=== PATIENT | female | born 1980 | race Caucasian/White ===

== ENCOUNTER 2016-11-07 06:17 | Day surgery (SDC) | payer MEDICAID ==
[2016-11-05 12:30] LABS: HEMATOCRIT 44.9 % (36.0-47.0); HEMOGLOBIN 15.5 g/dL (12.0-15.5); HGB HCT DIFFERENCE 1.6; MEAN CORPUSCULAR HEMOGLOBIN 30.4 pg (27.0-33.4); MEAN CORPUSCULAR HGB CONC 34.4 g/dL (32.0-36.0); MEAN CORPUSCULAR VOLUME 88 fl (80-97); RED BLOOD COUNT 5.08 10^6/uL (3.72-5.28); WHITE BLOOD COUNT 10.5 10^3/uL (4.0-10.5)
[~2016-11-07 06:17] MED LIST: LACTATED RINGERS 1000 ML IV PRN; LIDOCAINE 0.5% INJ-PF (5 MG/ML) 50 ML SDV SUBCUT PRN
[2016-11-07] MEDS ORDERED: MIDAZOLAM 2 MG/2 ML INJ ONE (08:34)
[2016-11-07] MEDS ORDERED: PROPOFOL INJ 200 MG/20 ML VIAL IV ONE (08:35)
[2016-11-07] MEDS ORDERED: PROMETHAZINE HCL INJ 25 MG/1 ML VIAL IV PRN ×2 (08:56)
[2016-11-07] MEDS ORDERED: FENTANYL CITRATE INJ/PF 100 MCG/2 ML AMPUL IV PRN ×3 (08:56)
[2016-11-07] MEDS ORDERED: MORPHINE SULFATE 10 MG/ML INJ IV PRN (08:56)
[2016-11-07] MEDS ORDERED: OXYCODONE-ACETAMINOPHEN 5-325 MG TABLET PO PRN ×2 (08:56)
[2016-11-07] MEDS ORDERED: DIPHENHYDRAMINE HCL 50 MG/ML VIAL IV PRN (08:56)
--- NOTE | 2016-11-07 08:59 | Operative Report ---
Operative Report DATE OF SURGERY: 11/07/16 Operative Report: The risks benefits and alternatives of the procedure explained to the patient in detail and informed consent is obtained that GIF Olympus video scope was inserted into the patient's mouth and hypopharynx the esophagus is identified intubated and insufflated the scope was then advanced through the esophagus stomach and duodenum retroflexion maneuver is done the esophagus stomach and first and second portions of the duodenum examined PREOPERATIVE DIAGNOSIS: Dyspepsia, GERD, nausea vomiting POSTOPERATIVE DIAGNOSIS: Gastritis status post biopsy rule out Helicobacter pylori OPERATION: EGD with biopsy SURGEON: MICKY ORTA ANESTHESIA: LMAC TISSUE REMOVED OR ALTERED: Gastric specimen 2 COMPLICATIONS: None. ESTIMATED BLOOD LOSS: none. INTRAOPERATIVE FINDINGS: Normal patent esophagus. Gastritis. Duodenitis PROCEDURE: Patient tolerated the procedure well. No immediate postprocedure complications are noted. Patient is discharged in good condition. Discharge date 11/07/2016. Discharge diet: Regular. Discharge activity: Regular. Patient does have a 2-3 week follow-up to discuss findings. Patient is instructed to call the office or proceed to the emergency room should there be any further problems or questions. We'll await on biopsies.
[2016-11-07] MEDS ORDERED: DEXTROSE 5%-1/2 NORMAL SALINE 1,000 ML IV PRN (09:29)
[2016-11-07] MEDS ORDERED: PROMETHAZINE HCL INJ 25 MG/1 ML VIAL INJ PRN (10:15)
[2016-11-07] MEDS ORDERED: SIMETHICONE 80 MG TAB.CHEW PO PRN (10:15)
[2016-11-07] MEDS ORDERED: ACETAMINOPHEN 325 MG TABLET PO PRN (10:15)
[2016-11-07 11:26] VITALS: BP 107/64
[2016-11-07] MEDS ORDERED: LIDOCAINE 2% INJ-PF (20 MG/ML) 10 ML AMPUL ONE (12:38)
[2016-11-07] MEDS ORDERED: DEXAMETHASONE SOD PHOSPHATE INJ 4 MG/1 ML VIAL ONE (12:38)
== END 2016-11-07 11:00 | disposition home or self-care (01) ==
LOC: OROUT 06:17
PROVIDERS: ATTEND Internal Medicine Gastroenterology
PROC: 0DB68ZX Excision of Stomach, Via Natural or Artificial Opening Endoscopic, Diagnostic (ICD-10-PCS; principal; 2016-11-07 08:30)
DX: K21.9 Gastro-esophageal reflux disease without esophagitis (principal); K44.9 Diaphragmatic hernia without obstruction or gangrene; K29.50 Unspecified chronic gastritis without bleeding; K29.80 Duodenitis without bleeding; M19.90 Unspecified osteoarthritis, unspecified site; J45.20 Mild intermittent asthma, uncomplicated; F17.210 Nicotine dependence, cigarettes, uncomplicated; Z79.51 Long term (current) use of inhaled steroids; Z79.899 Other long term (current) drug therapy
CPT/HCPCS: 43239; 36415; 85027; 81025; 88342 ×2; 88305 ×2; J2250; J1100; J2704; J3490; 740

== ENCOUNTER 2016-11-18 10:16 | Day surgery (SDC) | payer MEDICAID ==
[2016-11-12 12:03] LABS: APPEARANCE,URINE CLEAR; BILIRUBIN,URINE NEGATIVE (NEGATIVE); GLUCOSE, URINE NEGATIVE (NEGATIVE); KETONES,URINE NEGATIVE (NEGATIVE); LEUKOCYTE ESTERASE,URINE NEGATIVE (NEGATIVE); NITRITE,URINE NEGATIVE (NEGATIVE); PROTEIN,URINE NEGATIVE (NEGATIVE); URINE SPECIFIC GRAVITY 1.012; UROBILINOGEN,URINE NEGATIVE mg/dL (<2.0)
[2016-11-12 12:35] LABS: ANION GAP 9 (5-19); BLOOD UREA NITROGEN 9 mg/dL (7-20); CALCIUM 9.7 mg/dL (8.4-10.2); CARBON DIOXIDE 25 mmol/L (22-30); CHLORIDE 106 mmol/L (98-107); CREATININE RESULT 0.71 mg/dL (0.52-1.25); GLUCOSE 80 mg/dL (75-110); POTASSIUM 4.2 mmol/L (3.6-5.0); SODIUM 140.2 mmol/L (137-145)
[~2016-11-18 10:16] MED LIST changes: +BUPIVACAINE HCL 0.5 % INJ/PF 30 ML SDV ONE; +CLINDAMYCIN 600 MG/D5W RTU 600 MG/50 ML RTUPB IV PRN; +DEXAMETHASONE SOD PHOSPHATE INJ 4 MG/1 ML VIAL ONE; +GLYCOPYRROLATE INJ 0.4 MG/2 ML VIAL ONE; -LACTATED RINGERS 1000 ML IV PRN; +LIDOCAINE 0.5% INJ-PF (5 MG/ML) 50 ML SDV INJ PRN; -LIDOCAINE 0.5% INJ-PF (5 MG/ML) 50 ML SDV SUBCUT PRN; +LIDOCAINE 2% INJ-PF (20 MG/ML) 10 ML AMPUL ONE; +METOCLOPRAMIDE HCL INJ/PF 10 MG/2 ML SDV ONE; +NEOSTIGMINE METHYLSULFATE 10 MG/10 ML VIAL ONE; +ONDANSETRON HCL INJ/PF 4 MG/2 ML SDV ONE; +RINGERS SOLUTION,LACTATED 1,000 ML IV PRN; +ROCURONIUM BROMIDE INJ 50 MG/5 ML VIAL IV ONE; +SUCCINYLCHOLINE CHLORIDE INJ 200 MG/10 ML VIAL ONE
[2016-11-18] MEDS ORDERED: ALBUTEROL SULFATE 0.083% NEB 2.5 MG/3 ML AMPUL NEB ONE (12:39)
[2016-11-18] MEDS ORDERED: FENTANYL CITRATE INJ/PF 250 MCG/5 ML AMPULE ONE (12:51)
[2016-11-18] MEDS ORDERED: ACETAMINOPHEN 100 ML IV ONE (12:52)
[2016-11-18] MEDS ORDERED: MIDAZOLAM 2 MG/2 ML INJ ONE (12:52)
[2016-11-18] MEDS ORDERED: MORPHINE SULFATE 10 MG/ML INJ ONE (12:52)
[2016-11-18] MEDS ORDERED: PROPOFOL INJ 200 MG/20 ML VIAL IV ONE (12:52)
[2016-11-18] MEDS ORDERED: DIPHENHYDRAMINE HCL 50 MG/ML VIAL IV PRN (13:56)
[2016-11-18] MEDS ORDERED: MEPERIDINE HCL/PF INJ 25 MG/1 ML DISP.SYRIN IV PRN (13:56)
[2016-11-18] MEDS ORDERED: MORPHINE SULFATE 10 MG/ML INJ IV PRN (13:56)
[2016-11-18] MEDS ORDERED: PROMETHAZINE HCL INJ 25 MG/1 ML VIAL IV PRN ×2 (13:56)
[2016-11-18] MEDS ORDERED: FENTANYL CITRATE INJ/PF 100 MCG/2 ML AMPUL IV PRN ×3 (13:56)
[2016-11-18] MEDS ORDERED: OXYCODONE-ACETAMINOPHEN 5-325 MG TABLET PO PRN ×3 (13:56→14:56)
[2016-11-18] MEDS ORDERED: HYDROMORPHONE HCL INJ/PF 2 MG/ML AMPULE IV PRN (14:56)
--- NOTE | 2016-11-18 15:05 | Operative Report ---
Operative Report DATE OF SURGERY: 11/18/16 PREOPERATIVE DIAGNOSIS: Right Thumb RCL Tear POSTOPERATIVE DIAGNOSIS: Same OPERATION: Right Thumb RCL Repair SURGEON: FAUSTINO MARINELLI ANESTHESIA: GA COMPLICATIONS: None ESTIMATED BLOOD LOSS: Minimal PROCEDURE: Indication for above procedure: 36-year-old female who sustained injury to her right thumb back in August. She was diagnosed with a radial collateral ligament injury which was treated conservatively with a cast. Patient continued to have discomfort she was then sent to ms for further evaluation. Radiographs demonstrated laxity of the radial collateral ligament. The patient had failed conservative management we discussed options including continued immobilization versus operative intervention. Risks and benefits, procedure were explained patient patient verbalized understanding consented for the procedure. Procedure In Detail: Patient was seen and evaluated in the preoperative holding area. The RIGHT upper extremity was initialized and marked. Patient received 2g of Ancef IV for bacterial prophylaxis. Patient was taken back to the operative room where transferred to the operative table and placed under general anesthesia. Once they were adequately anesthetized a nonsterile tourniquet was placed on the upper extremity. A surgical team debriefing was performed ensuring all instrumentation was available, the surgical procedure was discussed with possible concerns reviewed. The upper extremity was prepped with chlorhexidine and alcohol and draped in a sterile fashion. A timeout was done identifying correct patient, procedure and extremity everyone in attendance agree with this and verbalized no concerns. The extremity was exsanguinated the tourniquet was inflated to 250 mmHg. C-arm fluoroscopy was obtained demonstrating laxity and subluxation of the MCP joint with stress on the radial collateral ligament thus the decision to proceed with operative repair was made. S shaped skin incision was made centered over the radial collateral ligament. Distal branches of the superficial radial nerve were identified and retracted from the wound. The abductor pollicis aponeurosis was identified and split just 2 mm volar to its insertion on the extensor mechanism. The abductor pollicis tendon was then retracted in a palmar direction. The radial collateral ligament of the MCP joint was then identified and demonstrated a tear from the proximal phalanx. There was sufficient ligament remaining to allow repair and no need for reconstruction. I then utilized C-arm fluoroscopy to determine the exact insertion point of the radial collateral ligament which was 5 mm distal to the articular surface along the volar third. A K wire was then placed into the insertion point and confirmed. I then overdrilled with a 3.2 mm cannulated drill. A horizontal mattress suture was placed into the ligament and then loaded on the Fork tip swivel lock suture along with the fiber tape. This brought the navajo ligament to its insertion point. Under C-arm fluoroscopy I then stressed my repair which demonstrated no recurrent gapping or displacement at the MCP joint. To provide further fixation I decided to proceed with internal brace fixation for further security. Blunt dissection was done proximal to the metacarpal insertion of the radial collateral ligament along the shaft to the metacarpal. Along the midline of the metacarpal the cannulated drill was utilized down to the stop. I then loaded my fiber tape from the previous anchor providing further fixation. Once this was secured final C-arm fluoroscopy was obtained which demonstrated appropriate placement of my swivel lock anchors with stress there was no residual gapping of the MCP joint. The wound was then irrigated with normal saline. The abductor aponeurosis was closed with 3-0 Vicryl suture. Tourniquet was deflated. Any peripheral vascular suture was carefully coagulated with bipolar cautery. Skin was closed a running subcuticular 4-0 Monocryl reinforced with Dermabond and Steri-Strips. Wound was dressed with 4 x 4's and a cast padding. Patient was placed in a well-padded thumb spica splint. Sponge counts, instrument counts, needle counts counts were correct. Patient was then awoken from anesthesia. Transferred from the operating room table to the operating room stretcher. There was no intraoperative complications patient tolerated procedure well stable to PACU. Postoperative plan: Patient will be placed in a cast for 4-6 weeks. We will obtain radiographs at follow-up.
--- NOTE | 2016-11-18 15:09 | PDOC DISCHARGE SUMMARY ---
Discharge Summary (SDC) - Discharge Final Diagnosis: Right Thumb MCP Radial Collateral Ligament Tear Date of Surgery: 11/18/16 Discharge Date: 11/18/16 Condition: Good Treatment or Instructions: Schedule Follow Up w/ Dr. Michael Garnica @ [facility] to be seen in 10-14 days or as scheduled [place]: [place]: [place]: Keep splint clean/dry/intact. Ice and elevate May begin finger range of motion attempting to make full fist. Stool softener of choice when on pain medication. Prescriptions: Oxycodone HCl/Acetaminophen [Percocet 7.5-325 Mg Tablet] 1 each PO Q6 PRN #50 tablet PRN Reason: Respiratory Treatments at Home: Deep Breathing/Coughing Discharge Activity: No Lifting Over 10 Pounds, No Lifting/Push/Pulling Report the Following to Your Physician Immediately: Fever over 101 Degrees, Unusual Bleeding, Redness, Swelling, Warmth, Increased Soreness
[2016-11-18] MEDS: FENTANYL CITRATE INJ/PF 100 MCG/2 ML AMPUL ONE ×2 (15:15→15:22)
[2016-11-18 17:05] VITALS: BP 111/69
== END 2016-11-18 17:05 | disposition home or self-care (01) ==
LOC: OROUT 10:16 → MERGE 12:15 → OROUT 17:05
PROVIDERS: ATTEND Orthopaedic Surgery
PROC: 0MQ70ZZ Repair Right Hand Bursa and Ligament, Open Approach (ICD-10-PCS; principal; 2016-11-18 12:15)
DX: S63.641A Sprain of metacarpophalangeal joint of right thumb, initial encounter (principal); X58.XXXA Exposure to other specified factors, initial encounter; M25.531 Pain in right wrist; M79.641 Pain in right hand; F17.210 Nicotine dependence, cigarettes, uncomplicated; G43.909 Migraine, unspecified, not intractable, without status migrainosus; Z88.8 Allergy status to other drugs, medicaments and biological substances; Z88.1 Allergy status to other antibiotic agents
CPT/HCPCS: 36415; 81025; 80048; 81001; 73140; 26540; J2250; S0077; J3490 ×3; J1100; J3010 ×2; J2765; J2270; J0330; J2405; J2704; J0131; 01810

== ENCOUNTER → 2016-11-21 | Outpatient (CLI) | payer MEDICAID | LOC: RAD 09:52 | PROVIDERS: ATTEND Surgery | DX: R10.11 Right upper quadrant pain (principal) | CPT/HCPCS: 76705 ==

== ENCOUNTER → 2016-11-24 | Outpatient (CLI) | payer MEDICAID | LOC: RAD 07:41 | PROVIDERS: ATTEND Surgery | DX: R10.11 Right upper quadrant pain (principal) | CPT/HCPCS: 81025; 78227; A9537; Q9969; J2805 ==

== ENCOUNTER 2017-04-26 00:41 | Emergency (ER) | payer MEDICAID ==
[2017-04-26 00:55] VITALS: BP 117/70
[2017-04-26] MEDS ORDERED: FAMOTIDINE 20 MG TABLET PO ONE (01:38)
[2017-04-26] MEDS ORDERED: DIPHENHYDRAMINE HCL 50 MG CAPSULE PO ONE (01:38)
[2017-04-26] MEDS ORDERED: PREDNISONE 20 MG TABLET PO ONE (01:38)
--- NOTE | 2017-04-26 01:40 | ER Document Report ---
ED Medical Screen (RME) - General Chief Complaint: Allergic Reaction Stated Complaint: FACIAL SWELLING/HIVES/MIGRAINE Time Seen by Provider: 04/26/17 01:38 Notes: 36 year old female with 2 complaints; first is a red itchy rash on face, arms, back that started after eating seafood tonight. She denies difficulty swallowing or breathing. She denies history of the same. Second is a migraine headache since this AM. She has these chronically and frequently, denies that it is different from usual, took ibuprofen. TRAVEL OUTSIDE OF THE [place] IN LAST 30 DAYS: No - Related Data Allergies/Adverse Reactions: amoxicillin trihydrate [From Augmentin] Allergy (Severe, Verified 04/26/17 00:52 ) Hives cefixime [From Suprax] Allergy (Severe, Verified 04/26/17 00:52) Hives meperidine HCl [From Demerol] Allergy (Severe, Verified 04/26/17 00:52) Hallucinations metoclopramide [From Reglan] Allergy (Severe, Verified 04/26/17 00:52) irritable Potassium Clavulanate * [From Augmentin] Allergy (Severe, Verified 04/26/17 00: 52) Hives amoxicillin [From Augmentin] Allergy (Intermediate, Verified 04/26/17 00:52) VOMITING clavulanic acid [From Augmentin] Allergy (Intermediate, Verified 04/26/17 00:52) VOMITING meperidine [From Demerol] Allergy (Intermediate, Verified 04/26/17 00:52) Hallucinations Past Medical History - Past Medical History Cardiac Medical History: Denies: Hx Coronary Artery Disease, Hx Heart Attack, Hx Hypertension Pulmonary Medical History: Reports: Hx Asthma - inhalers Denies: Hx Bronchitis, Hx COPD, Hx Pneumonia Neurological Medical History: Denies: Hx Cerebrovascular Accident, Hx Seizures Renal/ Medical History: Denies: Hx Peritoneal Dialysis Musculoskeltal Medical History: Denies Hx Arthritis Past Surgical History: Reports: Hx Pituitary Surgery - Immunizations Hx Diphtheria, Pertussis, Tetanus Vaccination: Yes Physical Exam - Vital signs Vitals: Temp Pulse Resp BP Pulse Ox 97.9 F 79 16 117/70 99 04/26/17 00:51 04/26/17 00:51 04/26/17 00:51 04/26/17 00:51 04/26/17 00:51 - HEENT Mouth/Lips: Normal Mucous membranes: Normal Pharynx: Normal Neck: Normal - Respiratory Respiratory status: No respiratory distress Breath sounds: Normal. No: Decreased air movement, Stridor, Wheezing Course - Vital Signs Vital signs: Temp Pulse Resp BP Pulse Ox 97.9 F 79 16 117/70 99 04/26/17 00:51 04/26/17 00:51 04/26/17 00:51 04/26/17 00:51 04/26/17 00:51
== END 2017-04-26 03:55 | disposition left against medical advice (07) ==
LOC: ER 00:41
DX: R21 Rash and other nonspecific skin eruption (principal); L29.8 Other pruritus; G43.909 Migraine, unspecified, not intractable, without status migrainosus; J45.909 Unspecified asthma, uncomplicated; Z53.20 Procedure and treatment not carried out because of patient's decision for unspecified reasons; Z88.0 Allergy status to penicillin; Z88.5 Allergy status to narcotic agent; Z88.1 Allergy status to other antibiotic agents; Z88.8 Allergy status to other drugs, medicaments and biological substances
CPT/HCPCS: 99281; J3490 ×2; J7512

== ENCOUNTER 2017-07-03 06:51 | Day surgery (SDC) | payer MEDICAID ==
[2017-07-03] MEDS ORDERED: ALBUTEROL SULFATE 0.083% NEB 2.5 MG/3 ML AMPUL NEB ONE (07:15)
[2017-07-03] MEDS ORDERED: PROPOFOL INJ 200 MG/20 ML VIAL IV ONE (07:26)
[2017-07-03] MEDS ORDERED: MIDAZOLAM 2 MG/2 ML INJ ONE (07:26)
[2017-07-03] MEDS ORDERED: PROMETHAZINE HCL INJ 25 MG/1 ML VIAL IV PRN ×2 (09:08)
--- NOTE | 2017-07-03 11:18 | Operative Report ---
Operative Report DATE OF SURGERY: 07/03/17 Operative Report: The risks, benefits and alternatives of the procedure including risks of bleeding, perforation requiring surgery are explained to the patient detail and informed consent was obtained. The patient was brought back to the operating room and placed in the left, lateral decubital position. Timeout was called. Propofol medications administered. A rectal examination is done which did not reveal any masses, tears or fissures. An Olympus videoscope was inserted the patient's rectum. The scope was then carefully advanced all the way to the cecum. The cecum was identified by the usual anatomical landmarks including the ileocecal valve as well as the appendiceal office. Photodocumentation is obtained. The scope was then sequentially pulled back via the various segments of the colon including the ascending colon, hepatic flexure, transverse colon, splenic flexure, descending colon finding to the rectosigmoid portions of the colon. Retroflexion maneuvers performed. The risks benefits and alternatives of the procedure explained to the patient in detail and informed consent is obtained.A GIF Olympus video scope was inserted into the patient's mouth and hypopharynx, the esophagus is identified intubated and insufflated, the scope was then advanced through the esophagus stomach and duodenum, retroflexion maneuver is done, the esophagus stomach and first and second portions of the duodenum examined PREOPERATIVE DIAGNOSIS: Abnormal CT scan showing thickening of the colon. Epigastric pain POSTOPERATIVE DIAGNOSIS: Mild terminal ileitis status post biopsy. Left side colitis status post biopsy. Gastritis status post biopsy. Duodenitis. Hiatal hernia OPERATION: Colonoscopy with biopsy. EGD with biopsy SURGEON: MICKY ORTA ANESTHESIA: LMAC TISSUE REMOVED OR ALTERED: As noted above. COMPLICATIONS: None. ESTIMATED BLOOD LOSS: None. INTRAOPERATIVE FINDINGS: As noted above. PROCEDURE: Patient tolerated procedure well. No immediate postprocedure complications are noted. Patient discharged in good condition. Discharge date 07/03/2017. Discharge diet: Regular. Discharge activity: Regular. 2-3 week follow-up to discuss findings. Patient is instructed to call the office or proceed to the emergency room should there be any further problems or questions. We will wait on pathology.
[2017-07-03 11:26] VITALS: BP 101/66
== END 2017-07-03 11:15 | disposition home or self-care (01) ==
LOC: OROUT 06:51
PROVIDERS: ATTEND Internal Medicine Gastroenterology
PROC: 0DBG8ZX Excision of Left Large Intestine, Via Natural or Artificial Opening Endoscopic, Diagnostic (ICD-10-PCS; 2017-07-03)
PROC: 0DB68ZX Excision of Stomach, Via Natural or Artificial Opening Endoscopic, Diagnostic (ICD-10-PCS; principal; 2017-07-03 08:45)
PROC: 0DBB8ZX Excision of Ileum, Via Natural or Artificial Opening Endoscopic, Diagnostic (ICD-10-PCS; 2017-07-03 08:45)
DX: K29.50 Unspecified chronic gastritis without bleeding (principal); K29.80 Duodenitis without bleeding; K44.9 Diaphragmatic hernia without obstruction or gangrene; K52.9 Noninfective gastroenteritis and colitis, unspecified; M19.90 Unspecified osteoarthritis, unspecified site; J45.20 Mild intermittent asthma, uncomplicated; F17.210 Nicotine dependence, cigarettes, uncomplicated; E28.2 Polycystic ovarian syndrome; Z88.1 Allergy status to other antibiotic agents; Z88.5 Allergy status to narcotic agent; Z79.51 Long term (current) use of inhaled steroids; Z79.899 Other long term (current) drug therapy
CPT/HCPCS: 43239; 45380; 81025; 88342 ×2; 88305 ×2; J2250; J2704; 810

== ENCOUNTER 2017-09-27 02:11 | Emergency (ER) | payer MEDICAID ==
[2017-09-27 02:24] VITALS: BP 115/71
--- NOTE | 2017-09-27 03:03 | ER Document Report ---
ED GI/ - General Chief Complaint: Abdominal Cramping Stated Complaint: ABDOMINAL PAIN Time Seen by Provider: 09/27/17 02:53 Notes: Patient is a 37-year-old female, at about 9 weeks gestation by first trimester ultrasound, the comes emergency department for chief complaint of cramping and spotting that started a few hours prior to arrival. She denies fever chills, nausea vomiting, flank pain. She reports current minimal cramping. She denies trauma. Past medical history of PCOS, on metformin. She follows with [facility]. TRAVEL OUTSIDE OF THE [place] IN LAST 30 DAYS: No - Related Data Allergies/Adverse Reactions: amoxicillin trihydrate [From Augmentin] Allergy (Severe, Verified 07/01/17 13:17 ) Hives cefixime [From Suprax] Allergy (Severe, Verified 07/01/17 13:17) Hives meperidine HCl [From Demerol] Allergy (Severe, Verified 07/01/17 13:17) Hallucinations metoclopramide [From Reglan] Allergy (Severe, Verified 07/01/17 13:17) irritable Potassium Clavulanate * [From Augmentin] Allergy (Severe, Verified 07/01/17 13: 17) Hives amoxicillin [From Augmentin] Allergy (Intermediate, Verified 07/01/17 13:17) VOMITING clavulanic acid [From Augmentin] Allergy (Intermediate, Verified 07/01/17 13:17) VOMITING meperidine [From Demerol] Allergy (Intermediate, Verified 07/01/17 13:17) Hallucinations Past Medical History - General Information source: Patient - Social History Smoking Status: Former Smoker Frequency of alcohol use: None Drug Abuse: None Lives with: Family Family History: Reviewed & Not Pertinent Patient has suicidal ideation: No Patient has homicidal ideation: No - Past Medical History Cardiac Medical History: Denies: Hx Coronary Artery Disease, Hx Heart Attack, Hx Hypertension Pulmonary Medical History: Reports: Hx Asthma - inhalers Denies: Hx Bronchitis, Hx COPD, Hx Pneumonia Neurological Medical History: Reports: Hx Migraine. Denies: Hx Cerebrovascular Accident, Hx Seizures Renal/ Medical History: Denies: Hx Peritoneal Dialysis GI Medical History: Reports: Hx Hiatal Hernia Musculoskeltal Medical History: Denies Hx Arthritis Past Surgical History: Reports: Hx Pituitary Surgery - Immunizations Hx Diphtheria, Pertussis, Tetanus Vaccination: Yes Review of Systems - Review of Systems Constitutional: No symptoms reported EENT: No symptoms reported Cardiovascular: No symptoms reported Respiratory: No symptoms reported Gastrointestinal: See HPI Genitourinary: No symptoms reported Female Genitourinary: See HPI Musculoskeletal: No symptoms reported Skin: No symptoms reported Hematologic/Lymphatic: No symptoms reported Neurological/Psychological: No symptoms reported Physical Exam - Vital signs Vitals: Temp Pulse Resp BP Pulse Ox 97.9 F 83 18 115/71 100 09/27/17 02:18 09/27/17 02:18 09/27/17 02:18 09/27/17 02:18 09/27/17 02:18 Interpretation: Normal - General General appearance: Anxious In distress: None - HEENT Head: Normocephalic, Atraumatic Eyes: Normal Conjunctiva: Normal Extraocular movements intact: Yes Eyelashes: Normal Pupils: PERRL Mouth/Lips: Normal Mucous membranes: Normal Pharynx: Normal Neck: Normal - Respiratory Respiratory status: No respiratory distress Chest status: Nontender Breath sounds: Normal. No: Decreased air movement, Wheezing - Cardiovascular Rhythm: Regular. No: Tachycardia Heart sounds: Normal auscultation, S1 appreciated, S2 appreciated Murmur: No - Abdominal Inspection: Normal Distension: No distension Bowel sounds: Normal Tenderness: Tender - mild general lower abdominal tenderness - Back Back: Normal, Nontender. No: Tender - Extremities General upper extremity: Normal inspection, Nontender, Normal ROM, Normal strength General lower extremity: Normal inspection, Nontender, Normal ROM, Normal strength - Neurological Neuro grossly intact: Yes Cognition: Normal Orientation: AAOx4 [place] Coma Scale Eye Opening: Spontaneous [place] Coma Scale Verbal: Oriented [place] Coma Scale Motor: Obeys Commands [place] Coma Scale Total: 15 Speech: Normal Motor strength normal: LUE, RUE, LLE, RLE Sensory: Normal - Psychological Associated symptoms: Anxious - Skin Skin Temperature: Warm Skin Moisture: Dry Skin Color: Normal Course - Re-evaluation Re-evalutation: Vital signs unremarkable. Patient anxious about results of her situation but otherwise she is very well-appearing. at bedside. Vital signs unremarkable. No severe tenderness on abdomen suggesting acute abdomen. CBC unremarkable, hCG is somewhat lower than expected, urinalysis unremarkable. RhoGam is not indicated. Unfortunately ultrasound showing what appears to be a nonviable with no visualized heartbeat. Suspect patient is beginning to miscarry. Patient was very upset about this, although her is very supportive and did help comfort her. I discussed expectations, pain medication, close follow-up, return precautions, options. They state that they will be seen by her [facility] and cardioverted, they also request a follow-up referral for here, request report which was given, they state understanding of plan and agreement with plan. - Vital Signs Vital signs: Temp Pulse Resp BP Pulse Ox 97.9 F 83 18 115/71 100 09/27/17 02:18 09/27/17 02:18 09/27/17 02:18 09/27/17 02:18 09/27/17 02:18 - Laboratory Result Diagrams: 09/27/17 03:23 Laboratory results interpreted by me: 09/27/17 09/27/17 09/27/17 02:48 03:23 03:23 WBC 12.4 H Beta HCG, Quant 55354.00 H Urine Blood SMALL H Discharge - Discharge Clinical Impression: Vaginal bleeding affecting early Condition: Stable Disposition: HOME, SELF-CARE Additional Instructions: Your workup is consistent with impending miscarriage. Take the pain medication if needed, follow-up closely with your [facility] over the next 2 days for additional management including discussion about D&C. Return to the emergency department for any concerning symptoms, see additional instructions below. You have been evaluated for a possible miscarriage. At this time, it appears that the fetus has stopped growing. A miscarriage occurs when the fetus is abnormal. There is no medicine or treatment to prevent it. If bleeding is not severe, and if your pain can be controlled with medicine, you could complete the miscarriage at home. If that's not practical, or if the miscarriage doesn't progress spontaneously, we will arrange for a D&C procedure. You should rest in bed. Do not douche or have sex for at least a week, or until OK'd by the doctor. If you believe you've passed the fetus, collect it in a zip-lock plastic bag. Be sure to follow up with your doctor. Call the doctor or return for re- examination if there is an increase in bleeding or cramping, extreme weakness, fainting, fever, or passage of tissue. Prescriptions: Oxycodone HCl/Acetaminophen [Percocet 5-325 mg Tablet] 1 - 2 tab PO Q4H PRN #15 tablet PRN Reason: Referrals: [facility] [Provider Group] - 09/28/17
[2017-09-27] MEDS ORDERED: ACETAMINOPHEN 325 MG TABLET PO ONE (03:20)
[2017-09-27 03:37] LABS: ABSOLUTE BASOPHILS # (AUTO) 0.1 10^3/uL (0.0-0.2); ABSOLUTE EOSINOPHILS # (AUTO) 0.1 10^3/uL (0.0-0.6); ABSOLUTE LYMPHOCYTES (AUTO) 3.5 10^3/uL (0.5-4.7); ABSOLUTE MONOCYTES (AUTO) 0.5 10^3/uL (0.1-1.4); ABSOLUTE NEUT (AUTO) 8.2 10^3/uL (1.7-8.2); BASOPHILS % (AUTO) 0.8 % (0-2); EOSINOPHILS % (AUTO) 1.2 % (0-6); HEMATOCRIT 36.2 % (36.0-47.0); HEMOGLOBIN 12.5 g/dL (12.0-15.5); LYMPHOCYTES % (AUTO) 28.2 % (13-45); MEAN CORPUSCULAR HEMOGLOBIN 30.5 pg (27.0-33.4); MEAN CORPUSCULAR HGB CONC 34.6 g/dL (32.0-36.0); MEAN CORPUSCULAR VOLUME 88 fl (80-97); MONOCYTES % (AUTO) 3.7 % (3-13); PLATELET COUNT 192 10^3/uL (150-450); RED CELL DISTRIBUTION WIDTH 12.9 % (11.5-14.0); SEGMENTED NEUTROPHILS % (AUTO) 66.1 % (42-78); TOTAL CELLS COUNTED % (AUTO) 100 %; WHITE BLOOD COUNT 12.4 10^3/uL (4.0-10.5)
[2017-09-27 03:46] LABS: APPEARANCE,URINE CLEAR; BILIRUBIN,URINE NEGATIVE (NEGATIVE); COLOR,URINE STRAW; GLUCOSE, URINE NEGATIVE (NEGATIVE); KETONES,URINE NEGATIVE (NEGATIVE); LEUKOCYTE ESTERASE,URINE NEGATIVE (NEGATIVE); NITRITE,URINE NEGATIVE (NEGATIVE); PROTEIN,URINE NEGATIVE (NEGATIVE); URINE SPECIFIC GRAVITY 1.006; UROBILINOGEN,URINE NEGATIVE mg/dL (<2.0)
--- NOTE | 2017-09-27 04:46 | RADIOLOGY REPORT (SQ) ---
EXAM DESCRIPTION: U/S OB TRANSVAG W/DOPPLER CLINICAL HISTORY: 37 years, Female, 1st trimester bleeding, cramping COMPARISON: None. LIMITATIONS: None. FINDINGS: No cardiac activity/flicker identified of an intrauterine fetus which measures 2.1 cm in crown-rump length; it viable, this would correspond with a gestational age of eight weeks and five days and VIKAS of 05/04/2018. 3.3 cm cervical length with closed appearance. Minimal free fluid in the posterior cul-de-sac. 2.9 cm left ovary appears of normal size, shape, echotexture, and vascularity. Right ovary is visualized. IMPRESSION: demise pattern. 48 to 72 hour laboratory/sonographic surveillance confirmation recommended. 2010 [employer]- All Rights Reserved
--- NOTE | 2017-09-27 17:28 | EKG REPORT ---
SEVERITY:- BORDERLINE ECG - SINUS RHYTHM PROBABLE LEFT ATRIAL ABNORMALITY : Confirmed by: Berta Nelson 27-Sep-2017 12:17:24
== END 2017-09-27 05:10 | disposition home or self-care (01) ==
LOC: ER 02:11
DX: O20.9 Hemorrhage in early pregnancy, unspecified (principal); Z3A.09 9 weeks gestation of pregnancy; Z88.0 Allergy status to penicillin
CPT/HCPCS: 93005; 99284; 86900; 86901; 36415; 84702; 85025; 81001; 76817; 93976; 93010; J3490

== ENCOUNTER 2018-08-25 20:58 | Emergency (ER) | payer MEDICAID ==
[2018-08-25 21:23] VITALS: BP 115/71
== END 2018-08-25 21:58 | disposition left against medical advice (07) ==
LOC: ER 20:58
DX: Z53.21 Procedure and treatment not carried out due to patient leaving prior to being seen by health care provider (principal)

== ENCOUNTER 2018-08-26 18:40 | Emergency (ER) | payer MEDICAID ==
[2018-08-26] MEDS ORDERED: NORMAL SALINE 1000 ML 1,000 ML IV ONE (19:01)
[2018-08-26] MEDS ORDERED: KETOROLAC TROMETHAMINE INJ/PF 30 MG/1 ML SDV IV ONE (19:02)
--- NOTE | 2018-08-26 19:03 | ER Document Report ---
ED Medical Screen (RME) - General Chief Complaint: Ankle Swelling Stated Complaint: ANKLE SWELLING,BODY PAIN Time Seen by Provider: 08/26/18 19:00 Notes: 38 years old female presents today with swelling of the lower extremity joints, both ankles and both knee more so on the right knee and ankle. He has a history of arthritis. General malaise. No fever chills. No headache focal weaknesses. Denies any chest pain. On examination-bilateral ankle swelling and tenderness as well as right knee tenderness on palpation. Questionable swellings. TRAVEL OUTSIDE OF THE [place] IN LAST 30 DAYS: No - Related Data Allergies/Adverse Reactions: amoxicillin trihydrate [From Augmentin] Allergy (Severe, Verified 08/26/18 18:43 ) Hives cefixime [From Suprax] Allergy (Severe, Verified 08/26/18 18:43) Hives meperidine HCl [From Demerol] Allergy (Severe, Verified 08/26/18 18:43) Hallucinations metoclopramide [From Reglan] Allergy (Severe, Verified 08/26/18 18:43) irritable Potassium Clavulanate * [From Augmentin] Allergy (Severe, Verified 08/26/18 18: 43) Hives amoxicillin [From Augmentin] Allergy (Intermediate, Verified 08/26/18 18:43) VOMITING clavulanic acid [From Augmentin] Allergy (Intermediate, Verified 08/26/18 18:43) VOMITING meperidine [From Demerol] Allergy (Intermediate, Verified 08/26/18 18:43) Hallucinations Past Medical History - Past Medical History Cardiac Medical History: Denies: Hx Coronary Artery Disease, Hx Heart Attack, Hx Hypertension Pulmonary Medical History: Reports: Hx Asthma - inhalers Denies: Hx Bronchitis, Hx COPD, Hx Pneumonia Neurological Medical History: Reports: Hx Migraine. Denies: Hx Cerebrovascular Accident, Hx Seizures Renal/ Medical History: Denies: Hx Peritoneal Dialysis GI Medical History: Reports: Hx Hiatal Hernia Musculoskeltal Medical History: Reports Hx Arthritis Past Surgical History: Reports: Hx Pituitary Surgery - Immunizations Hx Diphtheria, Pertussis, Tetanus Vaccination: Yes Influenza Administration Date for 06/2017 - 11/2017 Season: 06/21/16 Physical Exam - Vital signs Vitals: Temp Pulse Resp BP Pulse Ox 98.1 F 77 16 116/63 96 08/26/18 18:46 08/26/18 18:46 08/26/18 18:46 08/26/18 18:46 08/26/18 18:46 Course - Vital Signs Vital signs: Temp Pulse Resp BP Pulse Ox 98.1 F 77 16 116/63 96 08/26/18 18:46 08/26/18 18:46 08/26/18 18:46 08/26/18 18:46 08/26/18 18:46 Doctor's Discharge - Discharge Referrals: DRAKE MEDINA DO [Primary Care Provider] - Follow up as needed
[2018-08-26 19:36] LABS: ABSOLUTE BASOPHILS # (AUTO) 0.1 10^3/uL (0.0-0.2); ABSOLUTE EOSINOPHILS # (AUTO) 0.4 10^3/uL (0.0-0.6); ABSOLUTE LYMPHOCYTES (AUTO) 3.1 10^3/uL (0.5-4.7); ABSOLUTE MONOCYTES (AUTO) 0.3 10^3/uL (0.1-1.4); ABSOLUTE NEUT (AUTO) 4.9 10^3/uL (1.7-8.2); BASOPHILS % (AUTO) 1.2 % (0-2); EOSINOPHILS % (AUTO) 4.1 % (0-6); HEMATOCRIT 41.9 % (36.0-47.0); HEMOGLOBIN 14.9 g/dL (12.0-15.5); LYMPHOCYTES % (AUTO) 35.5 % (13-45); MEAN CORPUSCULAR HEMOGLOBIN 32.1 pg (27.0-33.4); MEAN CORPUSCULAR HGB CONC 35.5 g/dL (32.0-36.0); MEAN CORPUSCULAR VOLUME 90 fl (80-97); MONOCYTES % (AUTO) 3.9 % (3-13); PLATELET COUNT 202 10^3/uL (150-450); RED BLOOD COUNT 4.64 10^6/uL (3.72-5.28); RED CELL DISTRIBUTION WIDTH 13.4 % (11.5-14.0); SEGMENTED NEUTROPHILS % (AUTO) 55.3 % (42-78); TOTAL CELLS COUNTED % (AUTO) 100 %; WHITE BLOOD COUNT 8.9 10^3/uL (4.0-10.5)
[2018-08-26 19:43] LABS: APPEARANCE,URINE TURBID; BILIRUBIN,URINE NEGATIVE (NEGATIVE); COLOR,URINE YELLOW; GLUCOSE, URINE NEGATIVE (NEGATIVE); KETONES,URINE NEGATIVE (NEGATIVE); LEUKOCYTE ESTERASE,URINE NEGATIVE (NEGATIVE); NITRITE,URINE NEGATIVE (NEGATIVE); PROTEIN,URINE NEGATIVE (NEGATIVE); URINE SPECIFIC GRAVITY 1.015; UROBILINOGEN,URINE NEGATIVE mg/dL (<2.0)
--- NOTE | 2018-08-26 19:46 | ER Document Report ---
ED General - General Mode of Arrival: Ambulatory Information source: Patient TRAVEL OUTSIDE OF THE [place] IN LAST 30 DAYS: No <RAJ HUNTER - Last Filed: 08/26/18 19:47> <TIFF REICH - Last Filed: 08/26/18 23:27> - General Chief Complaint: Ankle Swelling Stated Complaint: ANKLE SWELLING,BODY PAIN Time Seen by Provider: 08/26/18 19:00 Notes: 38-year-old female who presents to the emergency department today with complaints of bilateral ankle swelling along with a "pins and needles" sensation all over her body. Patient states there is no place on her body that she does not have this "pins and needles" sensation. Patient states she has myalgias "all over" as well. Patient states she has been having this pins and needles sensation for 3-4 months and she noticed the ankle swelling last night. Patient states her ankles hurt worse at night, when walking, or lying down. Patient has been seen by multiple orthopedists for these complaints in the past. Patient has not been seen by rheumatology yet because she has "never been called by them". (RAJ HUNTER) - Related Data Allergies/Adverse Reactions: amoxicillin trihydrate [From Augmentin] Allergy (Severe, Verified 08/26/18 18:43 ) Hives cefixime [From Suprax] Allergy (Severe, Verified 08/26/18 18:43) Hives meperidine HCl [From Demerol] Allergy (Severe, Verified 08/26/18 18:43) Hallucinations metoclopramide [From Reglan] Allergy (Severe, Verified 08/26/18 18:43) irritable Potassium Clavulanate * [From Augmentin] Allergy (Severe, Verified 08/26/18 18: 43) Hives amoxicillin [From Augmentin] Allergy (Intermediate, Verified 08/26/18 18:43) VOMITING clavulanic acid [From Augmentin] Allergy (Intermediate, Verified 08/26/18 18:43) VOMITING meperidine [From Demerol] Allergy (Intermediate, Verified 08/26/18 18:43) Hallucinations Past Medical History - General Information source: Patient - Social History Smoking Status: Never Smoker Cigarette use (# per day): No Frequency of alcohol use: None Drug Abuse: None Family History: Reviewed & Not Pertinent Patient has suicidal ideation: No Patient has homicidal ideation: No Pulmonary Medical History: Reports: Hx Asthma - inhalers Neurological Medical History: Reports: Hx Migraine GI Medical History: Reports: Hx Hiatal Hernia Musculoskeletal Medical History: Reports Hx Arthritis Past Surgical History: Reports: Hx Pituitary Surgery - Immunizations Hx Diphtheria, Pertussis, Tetanus Vaccination: Yes <RAJ HUNTER - Last Filed: 08/26/18 19:47> Review of Systems - Review of Systems Constitutional: No symptoms reported EENT: No symptoms reported Cardiovascular: No symptoms reported Respiratory: No symptoms reported Gastrointestinal: No symptoms reported Genitourinary: No symptoms reported Female Genitourinary: No symptoms reported Musculoskeletal: See HPI, Muscle pain - "all over", Ankle swelling - bilateral Skin: No symptoms reported Hematologic/Lymphatic: No symptoms reported Neurological/Psychological: Tingling - "pins and needles" all over -: Yes All other systems reviewed and negative <RAJ HUNTER - Last Filed: 08/26/18 19:47> Physical Exam <RAJ HUNTER - Last Filed: 08/26/18 19:47> <TIFF REICH - Last Filed: 08/26/18 23:27> - Vital signs Vitals: Temp Pulse Resp BP Pulse Ox 98.1 F 77 16 116/63 96 08/26/18 18:46 08/26/18 18:46 08/26/18 18:46 08/26/18 18:46 08/26/18 18:46 - Notes Notes: PHYSICAL EXAM GENERAL: Alert, interacts well. No acute distress. Tearful. HEAD: Normocephalic, atraumatic. EYES: Pupils equal, round, and reactive to light. Extraocular movements intact. ENT: Oral mucosa moist, tongue midline. NECK: Full range of motion. Supple. Trachea midline. LUNGS: Clear to auscultation bilaterally, no wheezes, rales, or rhonchi. No respiratory distress. HEART: Regular rate and rhythm. No murmurs, gallops, or rubs. ABDOMEN: Soft, non-tender. Non-distended. Bowel sounds present in all 4 quadrants. No guarding, rigidity, or rebound. EXTREMITIES: Moves all 4 extremities spontaneously. Radial and dorsalis pedis pulses 2/4 bilaterally. No cyanosis. Trace non-pitting edema over the left lateral malleolus. NEUROLOGICAL: Alert and oriented x3. Normal speech. PSYCH: Tearful. SKIN: Warm and dry. No rashes or lesions noted. (RAJ HUNTER) Course - Laboratory Result Diagrams: 08/26/18 19:10 08/26/18 19:10 <RAJ HUNTER - Last Filed: 08/26/18 19:47> - Laboratory Result Diagrams: 08/26/18 19:10 08/26/18 19:10 <TIFF REICH - Last Filed: 08/26/18 23:27> - Re-evaluation Re-evalutation: 08/26/18 22:09 CBC unremarkable, ESR is elevated at 28 CRP is elevated at 22.1, CMP grossly unremarkable, glucose normal at 90, TSH is quite low at 0.05, free T4 is normal at 1.06 and free T3 is low at 2.71. Urinalysis has a small amount of blood, this is contaminated with 3 squamous epithelial cells, test is negative. Discussed with patient that given her history of a pituitary microadenoma treated with bromocriptine and the fact that she is now having some abnormal thyroid function tests and pins and needles sensations which I would classify his paresthesias all over her body she should follow-up with her primary care physician and possibly an canvass manager to further elucidate the cause of her thyroid test abnormalities. As her symptoms are consistent with paresthesias I will try starting her on Neurontin to see if it relieves any of her pain. Patient will be given Neurontin here and discharged to home. Patient is agreeable to this plan. She does not have any signs of myxedema coma at this time or thyroid storm. No indication for immediate treatment of her thyroid abnormalities. (TIFF REICH) - Vital Signs Vital signs: Temp Pulse Resp BP Pulse Ox 97.8 F 66 20 115/63 99 08/26/18 23:00 08/26/18 23:00 08/26/18 23:00 08/26/18 23:00 08/26/18 23:00 - Laboratory Laboratory results interpreted by me: 08/26/18 08/26/18 08/26/18 19:10 19:10 19:10 ESR 28 H Carbon Dioxide 32 H C-Reactive Protein 22.1 H TSH Free T3 pg/mL Urine Blood SMALL H 08/26/18 19:10 ESR Carbon Dioxide C-Reactive Protein TSH 0.05 L Free T3 pg/mL 2.71 L Urine Blood Discharge <RAJ HUNTER - Last Filed: 08/26/18 19:47> <TIFF REICH - Last Filed: 08/26/18 23:27> - Discharge Clinical Impression: Paresthesia, Abnormal thyroid function test Condition: Stable Disposition: HOME, SELF-CARE Additional Instructions: Today your thyroid tests were abnormal. This may be contributing to some of the pins and needles and burning sensation all of your body. This sensation is call paresthesias. It can be caused by nerve damage. This pain can sometimes be fixed with a medication called Neurontin. Please take the Neurontin 1 tablet once a day for the next 2 days then increase to twice a day for the next 2 days then you may increase to 2 tablets twice a day after that if your pain is not improving. You did have some abnormal thyroid function tests today. I have printed these out for you. It is very important that you follow-up with your primary care physician as an outpatient regarding these tests. A thyroid that is not functioning properly can cause some of the symptoms. Prescriptions: Gabapentin [Neurontin 100 mg Capsule] 100 mg PO Q12 #60 capsule Referrals: DOMINGO SOTOMAYOR MD [Primary Care Provider] - Follow up in 1 week Scribe Attestation: 08/26/18 23:27 I personally performed the services described in the documentation, reviewed and edited the documentation which was dictated to the scribe in my presence, and it accurately records my words and actions. (ITFF REICH) Scribe Documentation - Scribe Written by Teddy:: Teddy Qiu, 08/26/2018 1950 acting as scribe for :: Dex <RAJ HUNTER - Last Filed: 08/26/18 19:47>
[2018-08-26 19:57] LABS: ALANINE AMINOTRANSFERASE 21 U/L (9-52); ALBUMIN 4.5 g/dL (3.5-5.0); ALKALINE PHOSPHATASE 82 U/L (38-126); ANION GAP 9 (5-19); ASPARTATE AMINO TRANSFERASE 22 U/L (14-36); BILIRUBIN,DIRECT 0.1 mg/dL (0.0-0.4); BILIRUBIN,TOTAL 0.5 mg/dL (0.2-1.3); BLOOD UREA NITROGEN 13 mg/dL (7-20); C-REACTIVE PROTEIN 22.1 mg/L (<10.0); CALCIUM 9.7 mg/dL (8.4-10.2); CARBON DIOXIDE 32 mmol/L (22-30); CHLORIDE 103 mmol/L (98-107); GLUCOSE 90 mg/dL (75-110); POTASSIUM 4.2 mmol/L (3.6-5.0); SODIUM 144.3 mmol/L (137-145); TOTAL PROTEIN 7.4 g/dL (6.3-8.2)
[2018-08-26 20:15] LABS: ERYTHROCYTE SEDIMENTATION RATE 28 mm/hr (0-20)
[2018-08-26 20:28] LABS: FREE T3 2.71 pg/mL (2.77-5.27); FREE T4 (FREE THYROXINE) 1.06 ng/dL (0.78-2.19)
[2018-08-26 20:50] LABS: THYROID STIMULATING HORMONE 0.05 uIU/mL (0.47-4.68)
[2018-08-26] MEDS ORDERED: GABAPENTIN 100 MG CAPSULE PO ONE (22:06)
[2018-08-26 23:18] VITALS: BP 115/63
== END 2018-08-26 23:00 | disposition home or self-care (01) ==
LOC: ER 18:40
DX: R20.2 Paresthesia of skin (principal); R94.6 Abnormal results of thyroid function studies; M25.472 Effusion, left ankle; M25.471 Effusion, right ankle; Z88.0 Allergy status to penicillin
CPT/HCPCS: 99283; 96361; 96374; 36415; 84439; 82553; 82550; 84443; 85025; 85652; 81025; 86140; 80053; 81001; 84481; J1885; J7030; J3490

== ENCOUNTER 2018-09-11 15:29 | Emergency (ER) | payer MEDICAID ==
--- NOTE | 2018-09-11 15:43 | ER Document Report ---
ED Medical Screen (RME) - General Chief Complaint: Abdominal Pain Stated Complaint: ABDOMINAL PAIN Time Seen by Provider: 09/11/18 15:40 Mode of Arrival: Ambulatory Information source: Patient TRAVEL OUTSIDE OF THE [place] IN LAST 30 DAYS: No - HPI Patient complains to provider of: abd pain Onset: Yesterday - pt with onset of lower abd pain starting yesterday with exacerbation today. Plus nausea. Denies V/D - Related Data Allergies/Adverse Reactions: amoxicillin trihydrate [From Augmentin] Allergy (Severe, Verified 09/11/18 15:30) Hives cefixime [From Suprax] Allergy (Severe, Verified 09/11/18 15:30) Hives meperidine HCl [From Demerol] Allergy (Severe, Verified 09/11/18 15:30) Hallucinations metoclopramide [From Reglan] Allergy (Severe, Verified 09/11/18 15:30) irritable Potassium Clavulanate * [From Augmentin] Allergy (Severe, Verified 09/11/18 15:30) Hives amoxicillin [From Augmentin] Allergy (Intermediate, Verified 09/11/18 15:30) VOMITING clavulanic acid [From Augmentin] Allergy (Intermediate, Verified 09/11/18 15:30) VOMITING meperidine [From Demerol] Allergy (Intermediate, Verified 09/11/18 15:30) Hallucinations Past Medical History - Past Medical History Cardiac Medical History: Denies: Hx Coronary Artery Disease, Hx Heart Attack, Hx Hypertension Pulmonary Medical History: Reports: Hx Asthma - inhalers Denies: Hx Bronchitis, Hx COPD, Hx Pneumonia Neurological Medical History: Reports: Hx Migraine. Denies: Hx Cerebrovascular Accident, Hx Seizures Renal/ Medical History: Denies: Hx Peritoneal Dialysis GI Medical History: Reports: Hx Hiatal Hernia Musculoskeltal Medical History: Reports Hx Arthritis Past Surgical History: Reports: Hx Pituitary Surgery - Immunizations Hx Diphtheria, Pertussis, Tetanus Vaccination: Yes Influenza Administration Date for 06/2017 - 11/2017 Season: 06/21/16 Physical Exam - Vital signs Vitals: Temp Pulse Resp BP Pulse Ox 97.8 F 74 18 106/67 98 09/11/18 15:33 09/11/18 15:33 09/11/18 15:33 09/11/18 15:33 09/11/18 15:33 Course - Vital Signs Vital signs: Temp Pulse Resp BP Pulse Ox 97.8 F 74 18 106/67 98 09/11/18 15:33 09/11/18 15:33 09/11/18 15:33 09/11/18 15:33 09/11/18 15:33 Doctor's Discharge - Discharge Referrals: DOMINGO SOTOMAYOR MD [Primary Care Provider] - Follow up as needed
[2018-09-11 16:13] LABS: ABSOLUTE BASOPHILS # (AUTO) 0.1 10^3/uL (0.0-0.2); ABSOLUTE LYMPHOCYTES (AUTO) 3.7 10^3/uL (0.5-4.7); ABSOLUTE MONOCYTES (AUTO) 0.5 10^3/uL (0.1-1.4); ABSOLUTE NEUT (AUTO) 7.9 10^3/uL (1.7-8.2); BASOPHILS % (AUTO) 0.5 % (0-2); EOSINOPHILS % (AUTO) 0.4 % (0-6); HEMATOCRIT 48.3 % (36.0-47.0); HEMOGLOBIN 16.6 g/dL (12.0-15.5); LYMPHOCYTES % (AUTO) 30.1 % (13-45); MEAN CORPUSCULAR HEMOGLOBIN 31.2 pg (27.0-33.4); MEAN CORPUSCULAR HGB CONC 34.4 g/dL (32.0-36.0); MEAN CORPUSCULAR VOLUME 91 fl (80-97); MONOCYTES % (AUTO) 4.2 % (3-13); PLATELET COUNT 208 10^3/uL (150-450); RED BLOOD COUNT 5.33 10^6/uL (3.72-5.28); RED CELL DISTRIBUTION WIDTH 13.6 % (11.5-14.0); SEGMENTED NEUTROPHILS % (AUTO) 64.8 % (42-78); TOTAL CELLS COUNTED % (AUTO) 100 %; WHITE BLOOD COUNT 12.3 10^3/uL (4.0-10.5)
[2018-09-11 16:22] LABS: APPEARANCE,URINE SLIGHTLY-CLOUDY; BILIRUBIN,URINE NEGATIVE (NEGATIVE); COLOR,URINE YELLOW; GLUCOSE, URINE NEGATIVE (NEGATIVE); KETONES,URINE NEGATIVE (NEGATIVE); LEUKOCYTE ESTERASE,URINE NEGATIVE (NEGATIVE); NITRITE,URINE NEGATIVE (NEGATIVE); PROTEIN,URINE NEGATIVE (NEGATIVE); URINE SPECIFIC GRAVITY 1.017; UROBILINOGEN,URINE NEGATIVE mg/dL (<2.0)
[2018-09-11 16:34] LABS: ALANINE AMINOTRANSFERASE 16 U/L (9-52); ALBUMIN 4.2 g/dL (3.5-5.0); ALKALINE PHOSPHATASE 80 U/L (38-126); ANION GAP 9 (5-19); ASPARTATE AMINO TRANSFERASE 18 U/L (14-36); BILIRUBIN,DIRECT 0.2 mg/dL (0.0-0.4); BILIRUBIN,TOTAL 0.7 mg/dL (0.2-1.3); BLOOD UREA NITROGEN 12 mg/dL (7-20); CALCIUM 9.5 mg/dL (8.4-10.2); CARBON DIOXIDE 25 mmol/L (22-30); CHLORIDE 108 mmol/L (98-107); GLUCOSE 103 mg/dL (75-110); LIPASE 61.1 U/L (23-300); POTASSIUM 4.4 mmol/L (3.6-5.0); SODIUM 141.5 mmol/L (137-145); TOTAL PROTEIN 6.9 g/dL (6.3-8.2)
[2018-09-11] MEDS ORDERED: ONDANSETRON HCL INJ/PF 4 MG/2 ML SDV IV ONE (17:03)
[2018-09-11] MEDS ORDERED: NORMAL SALINE 1000 ML 1,000 ML IV ONE (17:03)
--- NOTE | 2018-09-11 17:04 | ER Document Report ---
ED GI/ - General Chief Complaint: Abdominal Pain Stated Complaint: ABDOMINAL PAIN Time Seen by Provider: 09/11/18 15:40 Mode of Arrival: Ambulatory Information source: Patient Notes: Patient presents complaining of lower abdominal pain for the past 2-3 days. Patient states that her last menstrual period was 07/31/2018. Patient reports having had 6+ home test. Patient denies any vomiting or diarrhea. Patient denies any urinary symptoms. Patient denies any vaginal bleeding or discharge. TRAVEL OUTSIDE OF THE [place] IN LAST 30 DAYS: No - HPI Patient complains to provider of: Missed/Late menses, Pelvic pain. No: Flank pain, Vomiting Onset: Other - 3 days Timing/Duration: Persistent Quality of pain: Achy, Cramping Pain Level: 3 Location: Pelvis Vaginal bleeding (Compared to normal period): None Sexual history: Active, Unprotected intercourse Associated symptoms: Nausea. denies: Dysuria, Fever, Urinary hesitancy, Urinary frequency, Urinary retention, Urinary urgency, Vomiting Exacerbated by: Denies Relieved by: Denies Similar symptoms previously: Yes Recently seen / treated by doctor: No - Related Data Allergies/Adverse Reactions: amoxicillin trihydrate [From Augmentin] Allergy (Severe, Verified 09/11/18 15:30) Hives cefixime [From Suprax] Allergy (Severe, Verified 09/11/18 15:30) Hives meperidine HCl [From Demerol] Allergy (Severe, Verified 09/11/18 15:30) Hallucinations metoclopramide [From Reglan] Allergy (Severe, Verified 09/11/18 15:30) irritable Potassium Clavulanate * [From Augmentin] Allergy (Severe, Verified 09/11/18 15:30) Hives amoxicillin [From Augmentin] Allergy (Intermediate, Verified 09/11/18 15:30) VOMITING clavulanic acid [From Augmentin] Allergy (Intermediate, Verified 09/11/18 15:30) VOMITING meperidine [From Demerol] Allergy (Intermediate, Verified 09/11/18 15:30) Hallucinations Past Medical History - General Information source: Patient - Social History Smoking Status: Current Every Day Smoker Chew tobacco use (# tins/day): No Smoking Education Provided: Yes Frequency of alcohol use: None Drug Abuse: None Lives with: Family Family History: Reviewed & Not Pertinent Patient has suicidal ideation: No Patient has homicidal ideation: No Pulmonary Medical History: Reports: Hx Asthma - inhalers Neurological Medical History: Reports: Hx Migraine Renal/ Medical History: Reports: Hx Ovarian Cysts - PCO S. 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 denies: Fever, Recent illness EENT: No symptoms reported Cardiovascular: No symptoms reported. denies: Chest pain Respiratory: No symptoms reported. denies: Cough Gastrointestinal: Abdominal pain, Nausea. denies: Diarrhea, Vomiting Genitourinary: No symptoms reported. denies: Dysuria, Flank pain Female Genitourinary: . denies: Vaginal discharge, Vaginal bleeding Musculoskeletal: No symptoms reported. denies: Back pain Skin: No symptoms reported Hematologic/Lymphatic: No symptoms reported Neurological/Psychological: No symptoms reported Physical Exam - Vital signs Vitals: Temp Pulse Resp BP Pulse Ox 97.8 F 74 18 106/67 98 09/11/18 15:33 09/11/18 15:33 09/11/18 15:33 09/11/18 15:33 09/11/18 15:33 - General General appearance: Appears well, Alert In distress: None - HEENT Head: Normocephalic, Atraumatic Eyes: Normal Conjunctiva: Normal Nasal: Normal Mouth/Lips: Normal Neck: Normal, Supple. No: Lymphadenopathy - Respiratory Respiratory status: No respiratory distress Chest status: Nontender Breath sounds: Normal. No: Rales, Rhonchi, Stridor, Wheezing Chest palpation: Normal - Cardiovascular Rhythm: Regular Heart sounds: S1 appreciated, S2 appreciated Murmur: No - Abdominal Inspection: Normal Distension: No distension Bowel sounds: Normal Tenderness: Tender - lower pelvic Organomegaly: No organomegaly - Genitourinary External exam: Normal Speculum exam: Cervix closed Vaginal bleeding: None Bimanuel exam: Adnexal tenderness - Bilateral - Back Back: CVA tenderness - right - Extremities General upper extremity: Normal inspection, Nontender, Normal strength General lower extremity: Normal inspection, Nontender, Normal strength - Neurological Neuro grossly intact: Yes Cognition: Normal [place] Coma Scale Eye Opening: Spontaneous [place] Coma Scale Verbal: Oriented [place] Coma Scale Motor: Obeys Commands [place] Coma Scale Total: 15 - Psychological Associated symptoms: Normal affect, Normal mood - Skin Skin Temperature: Warm Skin Moisture: Dry Skin Color: Normal Course - Re-evaluation Re-evalutation: 09/11/18 17:20 Patient states that she has had 6+ test at home and is concerned that she is actually in fact . We will add on serum hCG given patient's concerns. 09/11/18 18:15 Patient with positive serum , ultrasound called and advised that order will need to be changed to reflect an OB transvaginal ultrasound. 09/11/18 18:55 Attempted to consult with Dr. Nicolas who is currently in a delivery, message left with RN for return call. 09/11/18 19:[address] Nicolas regarding patient presentation, recommends repeating a quantitative hCG in 48 hours and having patient follow-up for recheck. Suspects that patient has likely corpus luteum cyst given report on ultrasound given that patient's quantitative hCG is only at 25. 09/11/18 20:06 Discussed with patient concern about possible ectopic at this time. Patient encouraged to follow-up with her S[facility]CING CONSULTANT for recheck. Discussed process for outpatient repeat quantitative hCG testing in 48 hours. Discussed worsening symptoms that patient should return immediately for. Patient verbalized understanding and agrees with plan of care at this time. - Vital Signs Vital signs: Temp Pulse Resp BP Pulse Ox 98.1 F 72 16 108/68 99 09/11/18 20:07 09/11/18 20:07 09/11/18 20:07 09/11/18 20:07 09/11/18 20:07 - Laboratory Result Diagrams: 09/11/18 15:50 09/11/18 15:50 Laboratory results interpreted by me: 09/11/18 09/11/18 09/11/18 15:50 15:50 15:50 WBC 12.3 H RBC 5.33 H Hgb 16.6 H Hct 48.3 H Chloride 108 H Serum HCG, Qual POSITIVE H Beta HCG, Quant 09/11/18 15:50 WBC RBC Hgb Hct Chloride Serum HCG, Qual Beta HCG, Quant 25.64 H 09/11/18 19:57 Labs- Entire Visit 12/09/11/18 09/11/18 15:50 15:50 15:50 WBC 12.3 H RBC 5.33 H Hgb 16.6 H Hct 48.3 H MCV 91 MCH 31.2 MCHC 34.4 RDW 13.6 Plt Count 208 Seg Neutrophils % 64.8 Lymphocytes % 30.1 Monocytes % 4.2 Eosinophils % 0.4 Basophils % 0.5 Absolute Neutrophils 7.9 Absolute Lymphocytes 3.7 Absolute Monocytes 0.5 Absolute Eosinophils 0.0 Absolute Basophils 0.1 Sodium 141.5 Potassium 4.4 Chloride 108 H Carbon Dioxide 25 Anion Gap 9 BUN 12 Creatinine 0.73 Est GFR ( Amer) > 60 Est GFR (Non-Af Amer) > 60 Glucose 103 Calcium 9.5 Total Bilirubin 0.7 Direct Bilirubin 0.2 Neonat Total Bilirubin Not Reportable Neonat Direct Bilirubin Not Reportable Neonat Indirect Bili Not Reportable AST 18 ALT 16 Alkaline Phosphatase 80 Total Protein 6.9 Albumin 4.2 Lipase 61.1 Serum HCG, Qual Beta HCG, Quant Total Beta HCG Urine Color YELLOW Urine Appearance SLIGHTLY-CLOUDY Urine pH 7.0 Ur Specific [place] 1.017 Urine Protein NEGATIVE Urine Glucose (UA) NEGATIVE Urine Ketones NEGATIVE Urine Blood NEGATIVE Urine Nitrite NEGATIVE Urine Bilirubin NEGATIVE Urine Urobilinogen NEGATIVE Ur Leukocyte Esterase NEGATIVE Urine WBC (Auto) 2 Urine RBC (Auto) 5 Urine Bacteria (Auto) TRACE Squamous Epi Cells Auto 7 Urine Mucus (Auto) RARE Urine Ascorbic Acid NEGATIVE Urine HCG, Qual NEGATIVE Epi Cells (Wet Prep) Bacteria (Wet Prep) Trichomonas (Wet Prep) Vaginal WBC Vaginal Yeast 09/11/18 09/11/18 09/11/18 15:50 15:50 18:18 WBC RBC Hgb Hct MCV MCH MCHC RDW Plt Count Seg Neutrophils % Lymphocytes % Monocytes % Eosinophils % Basophils % Absolute Neutrophils Absolute Lymphocytes Absolute Monocytes Absolute Eosinophils Absolute Basophils Sodium Potassium Chloride Carbon Dioxide Anion Gap BUN Creatinine Est GFR ( Amer) Est GFR (Non-Af Amer) Glucose Calcium Total Bilirubin Direct Bilirubin Neonat Total Bilirubin Neonat Direct Bilirubin Neonat Indirect Bili AST ALT Alkaline Phosphatase Total Protein Albumin Lipase Serum HCG, Qual POSITIVE H Beta HCG, Quant 25.64 H Total Beta HCG POSITIVE Urine Color Urine Appearance Urine pH Ur Specific [place] Urine Protein Urine Glucose (UA) Urine Ketones Urine Blood Urine Nitrite Urine Bilirubin Urine Urobilinogen Ur Leukocyte Esterase Urine WBC (Auto) Urine RBC (Auto) Urine Bacteria (Auto) Squamous Epi Cells Auto Urine Mucus (Auto) Urine Ascorbic Acid Urine HCG, Qual Epi Cells (Wet Prep) 3+ EPITHELIALS SEEN Bacteria (Wet Prep) 3+ BACTERIA SEEN Trichomonas (Wet Prep) NO TRICHOMONAS SEEN Vaginal WBC RARE WBCS SEEN Vaginal Yeast NO YEAST SEEN - Diagnostic Test Radiology reviewed: Reports reviewed Discharge - Discharge Clinical Impression: test positive, Pelvic pain Condition: Stable Disposition: HOME, SELF-CARE Instructions: Acetaminophen, Ectopic Precaution ([facility]) Additional Instructions: Return immediately for any new or worsening symptoms Followup with your primary care provider, call tomorrow to make a followup appointment Return to the lab in 48 hours for repeat blood test. Follow-up with S[facility] CONSULTANT for recheck, call Thursday for an appointment Forms: Follow-Up Laboratory Testing, Smoking Cessation Education Referrals: DOMINGO SOTOMAYOR MD [Primary Care Provider] - Follow up as needed [facility] [Provider Group] - Follow up as needed
--- NOTE | 2018-09-11 17:37 | RADIOLOGY REPORT (SQ) ---
EXAM DESCRIPTION: ACUTE ABDOMEN SERIES COMPLETED DATE/TIME: 09/11/2018 4:53 pm REASON FOR STUDY: abd pain COMPARISON: None. NUMBER OF VIEWS: Three views. TECHNIQUE: PA chest, supine abdomen and upright/decubitus abdomen radiographic images acquired. LIMITATIONS: None. FINDINGS: CHEST: Lungs clear of infiltrates. FREE AIR: None. No abnormal gas collections. BOWEL GAS PATTERN: Few scattered small bowel loops with air fluid levels. No distended large or small bowel loops. CALCIFICATIONS: No suspicious calcifications. HARDWARE: None in the abdomen. SOFT TISSUES: No gross mass or suggestion of organomegaly. BONES: No acute fracture. No worrisome bone lesions. OTHER: No other significant finding. IMPRESSION: NONSPECIFIC BOWEL GAS PATTERN WITHOUT EVIDENCE FOR OBSTRUCTION. TECHNICAL DOCUMENTATION: JOB ID: [id number] [employer]- All Rights Reserved Reading location - IP/workstation name: [email or web address]
[2018-09-11] MEDS ORDERED: DIPHENHYDRAMINE HCL 50 MG/ML VIAL IV ONE (18:08)
--- NOTE | 2018-09-11 18:24 | RADIOLOGY REPORT (SQ) ---
EXAM DESCRIPTION: U/S OB TRANSVAG W/DOPPLER COMPLETED DATE/TIME: 09/11/2018 6:09 pm REASON FOR STUDY: pelvic pain COMPARISON: None. TECHNIQUE: Transvaginal static and realtime grayscale images acquired of the pelvis. Additional elizabet cted spectral and color Doppler images recorded. All images stored on PACs. CLINICAL AGE: Under none BHCG: Not available. LIMITATIONS: None. FINDINGS: UTERUS: No visualized intrauterine . RIGHT ADNEXA: Normal ovary with normal vascular flow. No adnexal free fluid. No adnexal masses. LEFT ADNEXA: Normal ovary with normal vascular flow. No adnexal free fluid. Mass with ring of blood flow in the left adnexum. Ectopic in the differential. FREE FLUID: None. OTHER: No other significant finding. IMPRESSION: No visualized intrauterine . bHCG LEVEL NOT AVAILABLE FOR CORRELATION WITH US FINDINGS. Suspicious area in the left adnexum for possible ectopic . FOLLOW-UP ULTRASOUND AND SERIAL BHCG LEVELS STRONGLY RECOMMENDED TO ACCURATELY ASSESS STATU S. TECHNICAL DOCUMENTATION: JOB ID: [id number] [employer]- All Rights Reserved Reading location - IP/workstation name: [email or web address]
[2018-09-11 18:52] LABS: BACTERIA (WET MOUNT) 3+ BACTERIA SEEN; EPITHELIALS (WET MOUNT) 3+ EPITHELIALS SEEN; T.VAGINALIS (WET MOUNT) NO TRICHOMONAS SEEN; WBCS (WET MOUNT) RARE WBCS SEEN; YEAST (WET MOUNT) NO YEAST SEEN
[2018-09-11 20:09] VITALS: BP 108/68
[2018-09-11 20:19] LABS: CHLAM PCR NOT DETECTED (NOT DETECT); GON PCR NOT DETECTED (NOT DETECT)
== END 2018-09-11 20:07 | disposition home or self-care (01) ==
LOC: ER 15:29
DX: O26.91 Pregnancy related conditions, unspecified, first trimester (principal); R10.2 Pelvic and perineal pain; R11.0 Nausea; O99.330 Smoking (tobacco) complicating pregnancy, unspecified trimester
CPT/HCPCS: 99284; 96361; 96374; 36415; 87210; 84702; 83690; 84703; 85025; 81025; 80053; 81001; 87491; 87591; 74022; 76817; 93976; J1200; J7030

== ENCOUNTER 2018-09-13 18:00 | Emergency (ER) | payer MEDICAID ==
--- NOTE | 2018-09-13 19:29 | ER Document Report ---
HPI - HPI Time Seen by Provider: 09/13/18 19:21 Pain Level: 3 Notes: Patient is a 38-year-old female who presents to the emergency department after she states that she was upset 2 days ago and leaned up against the bathroom wall with her back to the wall and slid down backwards landing on her butt. She reports pain to her coccyx. She also reports that she is recently and would like a repeat hCG drawn. Patient denies any other symptoms. Patient denies any bowel incontinence, urinary retention, saddle anesthesia or fevers. She further denies any vaginal bleeding or abdominal cramping. - REPRODUCTIVE Reproductive: DENIES: : Past Medical History - General Information source: Patient - Social History Smoking Status: Current Every Day Smoker Chew tobacco use (# tins/day): No Frequency of alcohol use: None Drug Abuse: None Family History: Reviewed & Not Pertinent Patient has suicidal ideation: No Patient has homicidal ideation: No - Past Medical History Cardiac Medical History: Denies: Hx Coronary Artery Disease, Hx Heart Attack, Hx Hypertension Pulmonary Medical History: Reports: Hx Asthma - inhalers Denies: Hx Bronchitis, Hx COPD, Hx Pneumonia Neurological Medical History: Reports: Hx Migraine. Denies: Hx Cerebrovascular Accident, Hx Seizures Renal/ Medical History: Reports: Hx Ovarian Cysts - PCO S. Denies: Hx Peritoneal Dialysis GI Medical History: Reports: Hx Hiatal Hernia Musculoskeletal Medical History: Reports Hx Arthritis, Reports Hx Fibromyalgia Past Surgical History: Reports: Hx Breast Surgery, Hx Cholecystectomy, Hx Orthopedic Surgery, Hx Pituitary Surgery - Immunizations Hx Diphtheria, Pertussis, Tetanus Vaccination: Yes Vertical Provider Document - CONSTITUTIONAL Notes: PHYSICAL EXAMINATION: GENERAL: Well-appearing, well-nourished and in no acute distress. HEAD: Atraumatic, normocephalic. EYES: Pupils equal round extraocular movements intact, conjunctiva are normal. ENT: Nares patent NECK: Normal range of motion LUNGS: No respiratory distress Abdomen: Abdomen soft, nontender, no guarding no rebound. Musculoskeletal: Normal range of motion, no midline tenderness. Tenderness to palpation to the right side of the coccyx area. NEUROLOGICAL: Normal speech, normal gait. PSYCH: Normal mood, normal affect. SKIN: Warm, Dry, normal turgor, no rashes or lesions noted. - INFECTION CONTROL TRAVEL OUTSIDE OF THE [place] IN LAST 30 DAYS: No Course - Re-evaluation Re-evalutation: Patient is declining imaging at this time for her coccyx injury. She will be medicated with Tylenol as she is . Repeat hCG was drawn and has gone up slightly. Patient will be following up with her GM next week for follow-up. Patient given ED return precautions to include development of vaginal bleeding. - Vital Signs Vital signs: Temp Pulse Resp BP Pulse Ox 98.3 F 89 16 132/97 H 99 09/13/18 18:05 09/13/18 18:05 09/13/18 18:05 09/13/18 18:05 09/13/18 18:05 Discharge - Discharge Clinical Impression: Elevated serum hCG Back pain Qualifiers: Back pain location: low back pain Chronicity: acute Back pain laterality: unspecified Sciatica presence: without sciatica Qualified Code(s): M54.5 - Low back pain Condition: Stable Disposition: HOME, SELF-CARE Additional Instructions: Your hCG was elevated and today. It did increase from the results that were done 2 days ago. Please follow-up with your GM next week. Return to the emergency department if you develop vaginal bleeding, abdominal pain or any other symptom that is concerning to you. Take Tylenol for pain. You may take Benadryl for nausea. Referrals: DOMINGO SOTOMAYOR MD [Primary Care Provider] - Follow up as needed
[2018-09-13] MEDS ORDERED: LIDOCAINE 5% (700 MG) TRANSDERMAL ADH..PATCH TP ONE (19:44)
[2018-09-13] MEDS ORDERED: ACETAMINOPHEN 325 MG TABLET PO ONE (19:44)
[2018-09-13] MEDS ORDERED: PYRIDOXINE HCL 50 MG TABLET PO ONE (20:47)
[2018-09-13] MEDS ORDERED: DIPHENHYDRAMINE HCL 25 MG CAPSULE PO ONE (21:13)
[2018-09-13 21:25] VITALS: BP 102/53
== END 2018-09-13 21:26 | disposition home or self-care (01) ==
LOC: ER 18:00
DX: O99.89 Other specified diseases and conditions complicating pregnancy, childbirth and the puerperium (principal); M53.3 Sacrococcygeal disorders, not elsewhere classified; M54.5 Low back pain; M79.7 Fibromyalgia; O99.331 Smoking (tobacco) complicating pregnancy, first trimester; O99.511 Diseases of the respiratory system complicating pregnancy, first trimester; J45.909 Unspecified asthma, uncomplicated; O99.611 Diseases of the digestive system complicating pregnancy, first trimester; K44.9 Diaphragmatic hernia without obstruction or gangrene; O09.521 Supervision of elderly multigravida, first trimester; Z3A.00 Weeks of gestation of pregnancy not specified
CPT/HCPCS: 99283; 36415; 84702; J3490 ×4